=== PATIENT | female | born 1975 | race Caucasian/White ===

== ENCOUNTER 2022-07-08 09:50 | Emergency (ER) | payer OTHER, SELFPAY ==
[2022-07-08 10:26] VITALS: BP 143/76; PULSE 70; RESP 16; TEMP 36.4; O2SAT 100
--- NOTE | 2022-07-08 13:28 | ED.GENADULT ---
HPI - General Adult General Chief complaint: Eye Problems Stated complaint: Left eye infection Time Seen by Provider: 07/08/22 13:00 History of Present Illness HPI narrative: 46-year-old female presented to the emergency department for evaluation of left eye redness and swelling. Patient reports over the last 2 months she has been diagnosed with for eye infections multiple times. Patient states the first time she was treated with allergy drops and this did seem to improve. Patient was started on ofloxacin on Thursday and states since then that the redness and eye irritation has worsening. Related Data Allergies Allergy/AdvReac Type Severity Reaction Status Date / Time No Known Allergies Allergy Verified 07/08/22 11:42 Review of Systems Review of Systems: All systems reviewed & are unremarkable except as noted in HPI and below Exam Narrative: APPEARANCE: Well appearing, no pain, no distress, well-nourished. HEAD: normocephalic, atraumatic. EYES: Conjunctival injection, mild scleral edema. No periorbital cellulitis THROAT: Pharynx clear, no exudate. NECK: Supple. No adenopathy, no masses. RESPIRATORY: Airway patent, respirations nonlabored. Clear to auscultation bilaterally, no rales, rhonchi, wheezing. CARDIOVASCULAR: Regular rate and rhythm without murmurs rubs or gallops. ABDOMINAL: Soft, nontender, nondistended, normal bowel sounds MUSCULOSKELETAL: Moves all extremities. Strength/ROM intact, No edema, No calf tenderness. NEURO: Alert. Cranial nerves II through XII intact. Grossly intact SKIN: Warm, dry. Normal Color Course Course Emergency Course: Patient appears to have an allergic conjunctivitis potentially worsened by an allergic reaction to her antibiotics. Patient was encouraged to stop taking the antibiotics and was told to take oral Benadryl. Patient was also provided follow-up with ophthalmology. Vital Signs Vital signs: Vital Signs Temperature 97.6 F 07/08/22 10: Pulse Rate 70 07/08/22 10:26 Respiratory Rate 16 07/08/22 10: Blood Pressure 143/76 H 07/08/22 10:26 Pulse Oximetry 100 07/08/22 10: Temperature 97.6 F 07/08/22 10:26 Pulse Rate 70 07/08/22 10:26 Respiratory Rate 16 07/08/22 10:26 Blood Pressure 143/76 H 07/08/22 10:26 Pulse Oximetry 100 07/08/22 10:26 Medical Decision Making Vital Signs Vital Signs: Vital Signs Temperature 97.6 F 07/08/22 10:26 Pulse Rate 70 07/08/22 10:26 Respiratory Rate 16 07/08/22 10:26 Blood Pressure 143/76 H 07/08/22 10:26 Pulse Oximetry 100 07/08/22 10:26 Temperature 97.6 F 07/08/22 10:26 Pulse Rate 70 07/08/22 10:26 Respiratory Rate 16 07/08/22 10:26 Blood Pressure 143/76 H 07/08/22 10:26 Pulse Oximetry 100 07/08/22 10:26 Discharge Plan Discharge Clinical Impression: Allergic conjunctivitis Qualifiers: Laterality: left Qualified Code(s): H10.12 - Acute atopic conjunctivitis, left eye Patient Disposition: Home, Self-Care Condition: Stable Instructions: Antibiotic Form Additional Instructions: Stop using the antibiotic eyedrops. Have close follow-up with ophthalmology. Benadryl as needed for allergic symptoms. If you have any worsening symptoms then please call or return to the emergency department. Follow-up/Referrals: [facility] [Outside] PHYSICIAN NOT ON STAFF,NONSTAFF [Primary Care Provider] -
== END 2022-07-08 13:59 | disposition home or self-care (01) ==
PROVIDERS: Emergency Provider Emergency Medicine
DX: H10.12 Acute atopic conjunctivitis, left eye (principal)
CPT/HCPCS: 99281

== ENCOUNTER 2022-09-30 08:48 | Emergency (ER) | payer SELFPAY ==
--- NOTE | ~2022-09-30 | XR_ITS ---
Lateral and [place] views of the left calcaneus CLINICAL HISTORY: Pain FINDINGS: No fracture or dislocation seen. Joint spaces are preserved. There is mild enthesopathic ch cynthia at the Achilles tendon insertion. Small plantar calcaneal spur present. Soft tissues are unremar kable. IMPRESSION: Small plantar calcaneal spur. Enthesopathic change at the Achilles tendon insertion. Reviewed, dictated and finalized at location .
[2022-09-30 08:51] VITALS: BP 156/81; PULSE 75; RESP 16; TEMP 37; O2SAT 98
--- NOTE | 2022-09-30 11:06 | ED.LOWEXIN ---
HPI - Extremity Injury (Lower) General Chief Complaint: Extremity Injury, Lower Stated Complaint: left foot injury Time Seen by Provider: 09/30/22 09:41 History of Present Illness HPI Narrative: 46-year-old female reports for evaluation of left heel pain x1 month, worsening over the past week. Patient states the pain started in her heel and has now extended up into her Achilles tendon. States the pain is worse in the mornings and after she has been sitting up for long periods of time and stands to get up. She reports tightness in her calf and the posterior aspect of her ankle. Denies injury or fever. Related Data Allergies Allergy/AdvReac Type Severity Reaction Status Date / Time No Known Allergies Allergy Verified 09/30/22 09:50 Review of Systems Review of Systems: CONSTITUTIONAL: Denies fever, chills EYES: Denies visual changes, redness, or discharge. ENT: Denies rhinorrhea, congestion, sore throat, or otalgia. CARDIOVASCULAR: Denies chest pain, palpitations, or edema. RESPIRATORY: Denies cough or dyspnea. GASTROINTESTINAL: Denies abdominal pain, nausea, vomiting, or diarrhea. GENITOURINARY: Denies dysuria or hematuria. SKIN: Denies rash or itching. MUSCULOSKELETAL: See HPI NEUROLOGIC: Denies headache, numbness, dizziness, or weakness. PSYCHIATRIC: Denies anxiety or depression. Exam Narrative: GENERAL: Well-appearing, in no acute distress. HEAD: Normocephalic NECK: Supple. CHEST: No respiratory distress. Clear to auscultation, no adventitious breath sounds. HEART: Regular rate and rhythm. No murmur heard. Normal peripheral pulses. EXTREMITIES: Tenderness to palpation over the left calcaneus, plantar fascia and Achilles tendon. Negative Vu's test. No overlying edema. Full range of motion of ankle and toes. Cap refill is in 2. DP pulse 2+. No overlying skin changes. SKIN: Warm, dry, no rash. NEURO: No focal deficits. Alert and oriented x3. PSYCH: Normal mood and affect. Course Vital Signs Vital signs: Vital Signs Temperature 98.6 F 09/30/22 08:51 Pulse Rate 75 09/30/22 08:51 Respiratory Rate 16 09/30/22 08:51 Blood Pressure 156/81 H 09/30/22 08:51 Pulse Oximetry 98 09/30/22 08:51 Oxygen Delivery Room Air 09/30/22 08:51 Temperature 98.6 F 09/30/22 08:51 Pulse Rate 76 09/30/22 11:35 Respiratory Rate 18 09/30/22 11:35 Blood Pressure 154/83 H 09/30/22 11:35 Pulse Oximetry 98 09/30/22 11:35 Oxygen Delivery Room Air 09/30/22 08:51 MDM - Extremity Injury (Lower) MDM Narrative Medical decision making narrative: 46-year-old female reports for evaluation of left heel pain x1 month, worsening over the past week. Vitals stable other than mildly elevated blood pressure. Exam reveals tenderness to the calcaneus, plantar fascia and distal portion of the Achilles tendon. Negative Vu's. She is neurovascularly intact. X-rays show a small plantar calcaneal spur and an gastropathic change at the Achilles tendon insertion, consistent with plantar fasciitis and patient's exam and history. Naproxen provided in the ED and sent to pharmacy. Encouraged supportive insoles, calf stretching, and advised follow-up with PCP within the following week. Referral provided. Strict ED return precautions discussed. Patient agreeable to plan verbalized understanding. Discharged in stable condition. Medical Records Attestation: I reviewed the patient's medical records. Imaging Data Radiologist's impression: Impressions Heel X-Ray 09/30/22 09:55 IMPRESSION: Small plantar calcaneal spur. Enthesopathic change at the Achilles tendon insertion. Discharge Plan Discharge Clinical Impression: Plantar fasciitis, left Patient Disposition: Home, Self-Care Condition: Stable Instructions: Antibiotic Form, Plantar Fasciitis (ED), Plantar Fasciitis Exercises (ED) Additional Instructions: Your evaluated in the emergency department today for pa
[2022-09-30] MEDS: NAPROXEN 500 MG TABLET PO (11:28)
[2022-09-30 11:35] VITALS: BP 154/83; PULSE 76; RESP 18; O2SAT 98
== END 2022-09-30 11:36 | disposition home or self-care (01) ==
PROVIDERS: Emergency Provider Physician Assistant; PCP Family Medicine
DX: M72.2 Plantar fascial fibromatosis (principal); M77.32 Calcaneal spur, left foot
CPT/HCPCS: 73650; 99283; A9270